=== PATIENT | male | born 1990 | race African-American/Black ===

== ENCOUNTER 2021-10-25 11:41 | Emergency (ER) | payer OTHER ==
[~2021-10-25 11:41] MED LIST: dexAMETHasone 10 MG/ML VIAL ONE
[2021-10-25 13:08] LABS: Urine Blood Negative (Negative); Urine Glucose Negative (Negative); Urine Protein 2+ (Negative); Urine pH 7.5 (5.0-7.0)
[2021-10-25 13:21] LABS: Urine Bacteria >50 /HPF (NONE SEEN); Urine RBC <5 /HPF (NONE SEEN)
[2021-10-25 13:22] LABS: Urine Mucus SLIGHT /HPF (NONE SEEN)
[2021-10-25] MEDS ORDERED: AZITHROMYCIN 250 MG TAB ONE (13:29)
[2021-10-25] MEDS ORDERED: CEFTRIAXONE 250 MG/VIAL ONE (13:29)
--- NOTE | 2021-10-25 13:44 | ER ---
Nurse's Notes [facility] Name: Shanae Morrison Age: 31 yrs Sex: Male : 1990 Arrival Date: 10/25/2021 Time: 11:49 Bed 26 Private MD: Diagnosis: UTI/ Urinary tract infection, site not specified Presentation: 10/25 12:03 Chief complaint: Patient states: I began having pain in my penis this morning. "Feels ld1 like something is moving inside of my penis and it is trying to come out." Pt reporting pain in tip of penis. Coronavirus screen: At this time, the client does not indicate any symptoms associated with coronavirus-19. Ebola Screen: No symptoms or risks identified at this time. Initial Sepsis Screen: Does the patient meet any 2 criteria? No. Patient's initial sepsis screen is negative. Does the patient have a suspected source of infection? No. Patient's initial sepsis screen is negative. Risk Assessment: Do you want to hurt yourself or someone else? Patient reports no desire to harm self or others. Onset of symptoms was October 25, 2021. 12:03 Method Of Arrival: Law Enforcement: [place] [employer] ld1 12:03 Acuity: CORBY 4 ld1 Triage Assessment: 12:08 General: Appears in no apparent distress. uncomfortable, Behavior is calm, cooperative, ld1 appropriate for age. Pain: Denies pain. EENT: No signs and/or symptoms were reported regarding the EENT system. Neuro: Level of Consciousness is awake, alert, obeys commands, Oriented to person, place, time, situation. Cardiovascular: Capillary refill < 3 seconds Patient's skin is warm and dry. Respiratory: Airway is patent Respiratory effort is even, unlabored. GI: Abdomen is flat, non-distended. : No signs and/or symptoms were reported regarding the genitourinary system. Derm: No signs and/or symptoms reported regarding the dermatologic system. Musculoskeletal: No signs and/or symptoms reported regarding the musculoskeletal system. Historical: - Allergies: 12:08 Chocolate; ld1 - Home Meds: 12:08 None [Active]; ld1 - PMHx: 12:08 None; ld1 - PSHx: 12:08 None; ld1 - Immunization history:: Adult Immunizations up to date, Client reports receiving the 2nd dose of the Covid vaccine. - Social history:: Smoking status: Patient denies any tobacco usage or history of. Patient/guardian denies using alcohol. Screenin:09 Abuse screen: Denies threats or abuse. Denies injuries from another. Nutritional ld1 screening: No deficits noted. Tuberculosis screening: No symptoms or risk factors identified. Fall Risk None identified. Assessment: 12:09 Reassessment: see triage assessment. ld1 13:16 Reassessment: Patient appears in no apparent distress at this time. Patient states ld1 feeling better. Vital Signs: 12:03 BP 111 / 84; Pulse 84; Resp 18; Temp 98.3; Pulse Ox 100% on R/A; Weight 58.97 kg; ld1 Height 5 ft. 4 in. (162.56 cm); Pain 0/10; 13:16 BP 116 / 83; Pulse 81; Resp 18; Pulse Ox 100% ; Pain 0/10; ld1 12:03 Body Mass Index 22.31 (58.97 kg, 162.56 cm) ld1 ED Course: 11:49 Patient arrived in ED. pm1 11:52 Naheed Yoon, BENITO is Primary Nurse. ld1 12:08 Triage completed. ld1 12:08 Arm band placed on right wrist. ld1 12:09 Patient has correct armband on for positive identification. Placed in gown. Bed in low ld1 position. Call light in reach. Side rails up X2. chef broiler or fry on. Pulse ox on. NIBP on. Door closed. Noise minimized. Warm blanket given. 12:09 No provider procedures requiring assistance completed. ld1 12:13 Denys Car PA is PHCP. cp 12:13 Gideon Tran DO is Attending Physician. cp 13:10 Urine Microscopic Only Sent. ld1 13:10 GC (GONORR/CHLAMYDIA) Probe Sent. ld1 14:00 Patient did not have IV access during this emergency room visit. ld1 Administered Medications: 13:32 Drug: Zithromax (azithromycin) 1 grams Route: PO; ld1 13:32 Drug: Rocephin (cefTRIAXone) 250 mg Route: IM; Site: left deltoid; ld1 Outcome: 13:43 Discharge ordered by . cp 14:00 Discharged to Law Enforcement ld1 14:00 Condition: stable 14:00 Discharge instructions given to patient, police, Instructed on discharge instructions, follow up and referral plans. medication usage, Demonstrated understanding of instructions, follow-up care, medications, Prescriptions given X 2. 14:00 Patient left the ED. ld1 Signatures: Denys Car PA PA cp Marinas, Patrick, RETAIL INVENTORY CONTROL CLERK RETAIL INVENTORY CONTROL CLERK pm1 Naheed Yoon, RN RN ld1
--- NOTE | 2021-10-25 13:44 | EDPHYS ---
Physician Documentation [facility] Name: Shanae Morrison Age: 31 yrs Sex: Male : 1990 Arrival Date: 10/25/2021 Time: 11:49 Bed 26 Private MD: ED Physician Gideon Tran HPI: 10/25 12:30 This 31 yrs old Black Male presents to ER via Law Enforcement with complaints of cp Urinary Problem, Penile Problem. 12:30 The patient presents with penile pain, complains of discharge. Onset: The cp symptoms/episode began/occurred this morning. Associated signs and symptoms: Pertinent negatives: abdominal pain, diarrhea, fever, hematuria, vomiting. Severity of symptoms: in the emergency department the symptoms are unchanged, despite home interventions. Historical: - Allergies: 12:08 Chocolate; ld1 - Home Meds: 12:08 None [Active]; ld1 - PMHx: 12:08 None; ld1 - PSHx: 12:08 None; ld1 - Immunization history:: Adult Immunizations up to date, Client reports receiving the 2nd dose of the Covid vaccine. - Social history:: Smoking status: Patient denies any tobacco usage or history of. Patient/guardian denies using alcohol. ROS: 12:35 : Positive for penile discharge, penile pain, Negative for hematuria, flank pain, cp testicular pain 12:35 Constitutional: Negative for body aches, chills, fever, poor PO intake. cp 12:35 Cardiovascular: Negative for chest pain, palpitations. 12:35 Respiratory: Negative for cough, shortness of breath, wheezing. 12:35 Abdomen/GI: Negative for abdominal pain, nausea, vomiting, and diarrhea. 12:35 Back: Negative for radiated pain. 12:35 Neuro: Negative for altered mental status, headache, weakness. 12:35 All other systems are negative. Exam: 12:40 Constitutional: The patient appears in no acute distress, alert, awake, non-toxic, well cp developed, well nourished. 12:40 Head/Face: Normocephalic, atraumatic. cp 12:40 Eyes: Periorbital structures: appear normal, Conjunctiva: normal, no exudate, no injection, Lids and lashes: appear normal, bilaterally. 12:40 ENT: External ear(s): are unremarkable, Nose: is normal, Mouth: Lips: moist, Oral mucosa: moist, Posterior pharynx: Airway: no evidence of obstruction, patent. 12:40 Chest/axilla: Inspection: normal. 12:40 Cardiovascular: Rate: normal. 12:40 Respiratory: the patient does not display signs of respiratory distress, Respirations: normal, no use of accessory muscles, no retractions, labored breathing, is not present. 12:40 Abdomen/GI: Inspection: abdomen appears normal, Palpation: abdomen is soft and non-tender, in all quadrants. 12:40 Back: pain, is absent, ROM is normal. 12:40 : Male external genitalia: Circumcision noted. swelling: is not appreciated. 12:40 Skin: cellulitis, is not appreciated, lesion(s), are not present, no rash present. Vital Signs: 12:03 BP 111 / 84; Pulse 84; Resp 18; Temp 98.3; Pulse Ox 100% on R/A; Weight 58.97 kg; ld1 Height 5 ft. 4 in. (162.56 cm); Pain 0/10; 13:16 BP 116 / 83; Pulse 81; Resp 18; Pulse Ox 100% ; Pain 0/10; ld1 12:03 Body Mass Index 22.31 (58.97 kg, 162.56 cm) ld1 MDM: 13:00 Differential diagnosis: UTI, urinary retention, Marcus catheter problem, prostatitis, cp urethritis, STD. 13:43 Patient medically screened. 13:43 Data reviewed: vital signs, nurses notes, lab test result(s). 13:43 Counseling: I had a detailed discussion with the patient and/or guardian regarding: the cp historical points, exam findings, and any diagnostic results supporting the discharge/admit diagnosis, lab results, to return to the emergency department if symptoms worsen or persist or if there are any questions or concerns that arise at home. 10/25 12:25 Order name: GC (GONORR/CHLAMYDIA) Probe 10/25 12:25 Order name: Urine Microscopic Only; Complete Time: 13:42 cp 10/25 13:42 Interpretation: Reviewed. 10/25 13:08 Order name: Urine Dipstick-Ancillary; Complete Time: 13:18 EDMS 10/25 13:18 Interpretation: Normal except: UKET 1+; UPH 7.5; UPROT 2+. cp 10/25 13:26 Order name: Urine Culture EDMS 10/25 12:25 Order name: Urine Dipstick-Ancillary (obtain specimen); Complete Time: 13:10 cp Administered Medications: 13:32 Drug: Zithromax (azithromycin) 1 grams Route: PO; ld1 13:32 Drug: Rocephin (cefTRIAXone) 250 mg Route: IM; Site: left deltoid; ld1 Disposition Summary: 10/25/21 13:43 Discharge Ordered Location: Home cp Problem: new cp Symptoms: have improved cp Condition: Stable cp Diagnosis - UTI/ Urinary tract infection, site not specified cp Followup: cp - With: Private Physician - When: 2 - 3 days - Reason: Recheck today's complaints Discharge Instructions: - Discharge Summary Sheet cp - Urinary Tract Infection, Adult cp Forms: - Medication Reconciliation Form cp - Thank You Letter cp - Antibiotic Education cp - Prescription Opioid Use cp Prescriptions: - Ibuprofen 800 mg Oral Tablet - take 1 tablet by ORAL route every 8 hours As needed take with food; 30 tablet; cp Refills: 0, Product Selection Permitted - Doxycycline Hyclate 100 mg Oral Tablet - take 1 tablet by ORAL route every 12 hours; 20 tablet; Refills: 0, Product cp Selection Permitted Signatures: Dispatcher [employer] EDMS Denys Car PA PA cp Naheed Yoon, RN RN ld1
[2021-10-25 17:07] VITALS: TEMP 98.3; O2SAT 100
[2021-10-25 17:09] VITALS: BP 116/83
[2021-10-28 10:12] LABS: C.trachomatis RNA,TMA Not Detected (Not Detected)
== END 2021-10-25 14:00 | disposition home or self-care (01) ==
LOC: ER 11:41
DX: N39.0 Urinary tract infection, site not specified (principal); Z91.018 Allergy to other foods
CPT/HCPCS: 81003; 81015; 87086; 87088; 87490; 87590; 96372; 99284; J0696; J1100